=== PATIENT | female | born 1960 | race Caucasian/White ===

== ENCOUNTER → 2019-01-01 | Outpatient (CLI) | payer BC ==
--- NOTE | 2019-01-01 16:55 | US ---
EXAMINATION TYPE: US venous doppler duplex LE LT DATE OF EXAM: 01/01/2019 4:40 PM COMPARISON: NONE CLINICAL HISTORY: M25.562 PAIN IN LT KNEE. SIDE PERFORMED: TECHNIQUE: The lower extremity deep venous system is examined utilizing real time linear array sonog deepa with graded compression, doppler sonography and color-flow sonography. VESSELS IMAGED: External Iliac Vein (EIV)-not seen Common Femoral Vein Deep Femoral Vein Greater Saphenous Vein * Femoral Vein- unable to see vein for compression views due to Popliteal Vein Small Saphenous Vein * Proximal Calf Veins-not seen (* superficial vessels) Morbidly obese patient with swelling. Technically difficult and somewhat limited study. Results phone to Cristal at Dr. Griffin's office. Right Leg: Negative for DVT Left Leg: IMPRESSION: Limited exam. No evidence of deep venous thrombosis in the left leg.
== END | disposition home or self-care (01) ==
LOC: RADUSWWP 16:12
PROVIDERS: ATTEND Orthopaedic Surgery Hand Surgery
DX: I80.9 Phlebitis and thrombophlebitis of unspecified site (principal); L03.116 Cellulitis of left lower limb; S80.02XA Contusion of left knee, initial encounter

== ENCOUNTER 2020-12-14 07:40 | Observation (INO) | payer BC ==
[2020-12-14] MEDS ORDERED: SODIUM CHLORIDE 0.9% 500 ML 500 ML IV ONE (08:06)
--- NOTE | 2020-12-14 08:11 | ED ---
General Adult HPI - General Source: patient, RN notes reviewed Mode of arrival: ambulatory Limitations: no limitations <Ender Jackson - Last Filed: 12/14/20 10:11> <Osmany Mujica - Last Filed: 12/14/20 10:49> - General Chief complaint: Chest Pain Stated complaint: CHRISTY,Chest pain Time Seen by Provider: 12/14/20 08:00 - History of Present Illness Initial comments: This is a 60-year-old female presents emergency Department chief complaint of shortness breath, chest tightness. Patient states started over the night. Patient states she had no symptoms yesterday. Patient states it feels like it's hard to get deep breath and chest pain on her bilateral lower chest rib area. Patient states she has no significant past medical history though she does not go to a primary care physician on a regular basis. She denies history of cardiac disease however he may, hypertension, diabetes, PE, DVT. She states that she tries to take deep breath but just feels that she does not get no oxygen. She has noticed some leg swelling greater than the left leg. Patient denies any back pain no headache no dizziness. (Ender Jackson) - Related Data Home Medications Medication Instructions Recorded Confirmed Multivitamin/Iron/Folic Acid 1 tab PO DAILY 08/22/14 12/14/20 [Centrum Complete Multivit Tab] Allergies Allergy/AdvReac Type Severity Reaction Status Date / Time No Known Allergies Allergy Verified 12/14/20 08:20 Review of Systems ROS Other: All systems not noted in ROS Statement are negative. <Ender Jackson - Last Filed: 12/14/20 10:11> ROS Other: All systems not noted in ROS Statement are negative. <Osmany Mujica - Last Filed: 12/14/20 10:49> ROS Statement: Those systems with pertinent positive or pertinent negative responses have been documented in the HPI. Past Medical History Past Medical History: No Reported History History of Any Multi-Drug Resistant Organisms: None Reported Past Surgical History: Cholecystectomy, Hysterectomy, Uterine Ablation Past Anesthesia/Blood Transfusion Reactions: Family Hisory of Malignant Hyperthermia Additional Past Anesthesia/Blood Transfusion Reaction / Comment(s): GRANDFATHER HAD MALIGNANT HYPERTHERMIA Past Psychological History: No Psychological Hx Reported Smoking Status: Never smoker Past Alcohol Use History: None Reported Past Drug Use History: None Reported - Past Family History Mother Family Medical History: Cancer Additional Family Medical History / Comment(s): COLON CANCER Father Family Medical History: Cancer <Ender Jackson Sulaiman - Last Filed: 12/14/20 10:11> General Exam Limitations: no limitations General appearance: alert, in no apparent distress Head exam: Present: atraumatic, normocephalic, normal inspection Eye exam: Present: normal appearance, PERRL, EOMI. Absent: scleral icterus, conjunctival injection, periorbital swelling ENT exam: Present: normal exam, normal oropharynx, mucous membranes moist, TM's normal bilaterally Neck exam: Present: normal inspection, full ROM. Absent: tenderness, meningismus, lymphadenopathy Respiratory exam: Present: normal lung sounds bilaterally. Absent: respiratory distress, wheezes, rales, rhonchi, stridor Cardiovascular Exam: Present: normal rhythm, tachycardia, normal heart sounds. Absent: systolic murmur, diastolic murmur, rubs, gallop, clicks GI/Abdominal exam: Present: soft, normal bowel sounds. Absent: distended, tenderness, guarding, rebound, rigid Extremities exam: Present: pedal edema (Mild swelling to the left leg with no significant calf Tenderness) Neurological exam: Present: alert, oriented X3 Skin exam: Present: warm, dry, intact, normal color. Absent: rash <Ender Jackson - Last Filed: 12/14/20 10:11> Course <Osmany Mujica - Last Filed: 12/14/20 10:49> Vital Signs 12/14/20 12/14/20 07:44 09:57 Temperature 98.0 F Pulse Rate 120 H 114 H Respiratory 22 20 Rate Blood Pressure 187/86 149/80 O2 Sat by Pulse 97 99 Oximetry - Reevaluation(s) Reevaluation #1: 12/14/20 10:48 PA supervision: I did personally evaluate this case patient presented with complaints of shortness of breath. He does demonstrate evidence of tachycardia shortness of breath she will be admitted. Dr. Kumar the admitting physician (Osmany Mujica) EKG Findings - EKG Comments: EKG Findings:: EKG performed at 17:59 sinus tachycardia rate of 115 MO 152 QRS 90 QT/QTC 332/459 <Ender Jackson - Last Filed: 12/14/20 10:11> Medical Decision Making - Lab Data Result diagrams: 12/14/20 08:17 12/14/20 08:17 <Ender Jackson - Last Filed: 12/14/20 10:11> - Lab Data Result diagrams: 12/14/20 08:17 12/14/20 08:17 <GuanakoOsmany - Last Filed: 12/14/20 10:49> - Medical Decision Making Patient's been persistent symptoms, persistent tachycardia. Ultrasound chest x- ray and labs unremarkable. Patient be made for echocardiogram, cardiology evaluation. (Ender Jackson) - Lab Data Lab Results 12/14/20 12/14/20 12/14/20 Range/Units 08:17 08:17 08:17 WBC 6.2 (3.8-10.6) k/uL RBC 4.95 (3.80-5.40) m/uL Hgb 14.0 (11.4-16.0) gm/dL Hct 42.2 (34.0-46.0) % MCV 85.3 (80.0-100.0) fL MCH 28.3 (25.0-35.0) pg MCHC 33.1 (31.0-37.0) g/dL RDW 15.2 (11.5-15.5) % Plt Count 194 (150-450) k/uL MPV 7.5 Neutrophils % 79 % Lymphocytes % 15 % Monocytes % 3 % Eosinophils % 1 % Basophils % 1 % Neutrophils # 4.9 (1.3-7.7) k/uL Lymphocytes # 0.9 L (1.0-4.8) k/uL Monocytes # 0.2 (0-1.0) k/uL Eosinophils # 0.1 (0-0.7) k/uL Basophils # 0.0 (0-0.2) k/uL Poikilocytosis Slight PT 10.2 (9.0-12.0) sec INR 0.9 (<1.2) APTT 24.5 (22.0-30.0) sec D-Dimer 0.47 (<0.60) mg/L FEU Sodium 139 (137-145) mmol/L Potassium 4.0 (3.5-5.1) mmol/L Chloride 107 (98-107) mmol/L Carbon Dioxide 25 (22-30) mmol/L Anion Gap 7 mmol/L BUN 11 (7-17) mg/dL Creatinine 0.71 (0.52-1.04) mg/dL Est GFR (CKD-EPI)AfAm >90 (>60 ml/min/1.73 sqM) Est GFR (CKD-EPI)NonAf >90 (>60 ml/min/1.73 sqM) Glucose 137 H (74-99) mg/dL Plasma Lactic Acid Frederick (0.7-2.0) mmol/L Calcium 9.6 (8.4-10.2) mg/dL Magnesium 2.0 (1.6-2.3) mg/dL Total Bilirubin 0.8 (0.2-1.3) mg/dL AST 25 (14-36) U/L ALT 28 (4-34) U/L Alkaline Phosphatase 99 (38-126) U/L Troponin I (0.000-0.034) ng/mL NT-Pro-B Natriuret Pep pg/mL Total Protein 6.9 (6.3-8.2) g/dL Albumin 4.3 (3.5-5.0) g/dL 12/14/20 12/14/20 12/14/20 Range/Units 08:17 08:17 08:17 WBC (3.8-10.6) k/uL RBC (3.80-5.40) m/uL Hgb (11.4-16.0) gm/dL Hct (34.0-46.0) % MCV (80.0-100.0) fL MCH (25.0-35.0) pg MCHC (31.0-37.0) g/dL RDW (11.5-15.5) % Plt Count (150-450) k/uL MPV Neutrophils % % Lymphocytes % % Monocytes % % Eosinophils % % Basophils % % Neutrophils # (1.3-7.7) k/uL Lymphocytes # (1.0-4.8) k/uL Monocytes # (0-1.0) k/uL Eosinophils # (0-0.7) k/uL Basophils # (0-0.2) k/uL Poikilocytosis PT (9.0-12.0) sec INR (<1.2) APTT (22.0-30.0) sec D-Dimer (<0.60) mg/L FEU Sodium (137-145) mmol/L Potassium (3.5-5.1) mmol/L Chloride (98-107) mmol/L Carbon Dioxide (22-30) mmol/L Anion Gap mmol/L BUN (7-17) mg/dL Creatinine (0.52-1.04) mg/dL Est GFR (CKD-EPI)AfAm (>60 ml/min/1.73 sqM) Est GFR (CKD-EPI)NonAf (>60 ml/min/1.73 sqM) Glucose (74-99) mg/dL Plasma Lactic Acid Frederick 2.1 H* (0.7-2.0) mmol/L Calcium (8.4-10.2) mg/dL Magnesium (1.6-2.3) mg/dL Total Bilirubin (0.2-1.3) mg/dL AST (14-36) U/L ALT (4-34) U/L Alkaline Phosphatase (38-126) U/L Troponin I <0.012 (0.000-0.034) ng/mL NT-Pro-B Natriuret Pep 106 pg/mL Total Protein (6.3-8.2) g/dL Albumin (3.5-5.0) g/dL Disposition <Ender Jackson - Last Filed: 12/14/20 10:11> <Osmany Mujica - Last Filed: 12/14/20 10:49> Clinical Impression: Chest pain, Shortness of breath, Tachycardia Disposition: ADMITTED IP TO THIS HOSP Condition: Fair
[2020-12-14 08:26] LABS: Basophils % (A) 1 %; Eosinophils # (A) 0.1 k/uL (0-0.7); Eosinophils % (A) 1 %; HCT 42.2 % (34.0-46.0); Lymphocytes # (A) 0.9 k/uL (1.0-4.8); Lymphocytes % (A) 15 %; MCH 28.3 pg (25.0-35.0); MCHC 33.1 g/dL (31.0-37.0); MCV 85.3 fL (80.0-100.0); Mean Platelet Volume 7.5; Monocytes # (A) 0.2 k/uL (0-1.0); Monocytes % (A) 3 %; Neutrophils # (A) 4.9 k/uL (1.3-7.7); Neutrophils % (A) 79 %; Platelet Count 194 k/uL (150-450); Poikilocytosis Slight; RBC 4.95 m/uL (3.80-5.40); RDW 15.2 % (11.5-15.5); WBC 6.2 k/uL (3.8-10.6)
[2020-12-14 08:39] LABS: D-Dimer 0.47 mg/L FEU (<0.60); INR 0.9 (<1.2); Partial Thromboplastin Time 24.5 sec (22.0-30.0); Prothrombin Time 10.2 sec (9.0-12.0)
[2020-12-14 08:46] LABS: ALT 28 U/L (4-34); AST 25 U/L (14-36); African American GFR (CKD) >90 (>60 ml/min/1.73 sqM); Albumin 4.3 g/dL (3.5-5.0); Alkaline Phosphatase 99 U/L (38-126); Anion Gap 7 mmol/L; Blood Urea Nitrogen 11 mg/dL (7-17); Calcium 9.6 mg/dL (8.4-10.2); Carbon Dioxide 25 mmol/L (22-30); Chloride 107 mmol/L (98-107); Glucose 137 mg/dL (74-99); Non-African American GFR(CKD) >90 (>60 ml/min/1.73 sqM); Sodium 139 mmol/L (137-145); Total Bilirubin 0.8 mg/dL (0.2-1.3); Total Protein 6.9 g/dL (6.3-8.2)
--- NOTE | 2020-12-14 08:54 | XR ---
EXAMINATION TYPE: XR chest 2V DATE OF EXAM: 12/14/2020 COMPARISON: NONE HISTORY: Difficulty in breathing. TECHNIQUE: Frontal and lateral views of the chest are obtained. FINDINGS: There is no focal air space opacity, pleural effusion, or pneumothorax seen. The cardiac silhouette size is within normal limits. Slight underlying scoliotic curvature with mild multilevel s purring. Cholecystectomy clips are noted. IMPRESSION: No acute cardiopulmonary process.
--- NOTE | 2020-12-14 09:26 | US ---
EXAMINATION TYPE: US venous doppler duplex LE LT DATE OF EXAM: 12/14/2020 9:16 AM COMPARISON: NONE CLINICAL HISTORY: 60-year-old female pain. No redness. Patient states her left leg swells. SOB. SIDE PERFORMED: Left TECHNIQUE: The lower extremity deep venous system is examined utilizing real time linear array sonog deepa with graded compression, doppler sonography and color-flow sonography. FINDINGS: VESSELS IMAGED: Common Femoral Vein Deep Femoral Vein Greater Saphenous Vein * Femoral Vein Popliteal Vein Small Saphenous Vein * Proximal Calf Veins (* superficial vessels) *Dip Stand Loader notes:Very limited exam due to patient body habitus Left Leg: Negative for acute DVT IMPRESSION: No evidence for DVT within the left lower extremity imaged from the groin to the upper calf.
[2020-12-14] MEDS ORDERED: HEPARIN SODIUM,PORCINE 5,000 UNIT/ML 1 ML VIAL IV ONE (10:12)
[2020-12-14] MEDS ORDERED: ASPIRIN 81 MG PO STA (10:12)
[2020-12-14] MEDS ORDERED: NITROGLYCERIN SL TABS 0.4 MG TAB SUBLINGUAL PRN (10:12)
[2020-12-14] MEDS: HEPARIN SOD,PORK IN 0.45% NACL 25,000 UNIT in 0.45% NACL 1 250ML.BAG IV SCH (10:42)
[2020-12-14 11:22] LABS: Appearance,Urine Clear (Clear); Bilirubin,Urine Negative (Negative); Blood,Urine Negative (Negative); Color,Urine Light Yellow; Glucose,Urine (UA) Negative (Negative); Ketones,Urine Negative (Negative); Leukocyte Esterase,Urine Negative (Negative); Nitrite,Urine Negative (Negative); PH, Urine 7.5 (5.0-8.0); Protein,Urine Negative (Negative); Specific Gravity,Urine 1.009 (1.001-1.035); Urobilinogen,Urine <2.0 mg/dL (<2.0)
[2020-12-14] MEDS ORDERED: OXYMETAZOLINE 0.05% NASL SPRAY 1 SPRAY BOTTLE NASAL STA (12:49)
[2020-12-14 21:58] LABS: C Reactive Protein 12.1 mg/L (<10.0)
[2020-12-14] MEDS: HEPARIN SODIUM,PORCINE 5,000 UNIT/ML 1 ML VIAL IV PRN (22:01)
[2020-12-14] MEDS ORDERED: ALBUTEROL NEBULIZED 2.5 MG/3 ML INHALATION PRN (22:41)
--- NOTE | 2020-12-14 22:46 | P.HPIM ---
History of Present Illness H&P Date: 12/14/20 Chief Complaint: CHRISTY Patient is a 60-year-old female with a known history of obesity, hysterectomy presents to ER with complaints of shortness of breath and chest tightness wo rsening for the past 2 weeks. Overnight her symptoms got worse. Patient states that she felt like choking in the neck and hard to take deep breath. She has been having on and off chest pain mainly in the lower rib area lasting for few seconds. Sharp pains. No radiation. No associated nausea vomiting or abdominal pain. No diarrhea or dysuria. No recent illnesses or sick contacts. Patient has been working at home due to COVID-19 pandemic. Denies any cough or sputum production. No fever no chills. No prior history of blood clots. Chest x-ray showed no acute cardiopulmonary process. Left lower extremity duplex scan is negative for DVT. D-dimer is not elevated. EKG showed sinus tachycardia with heart rate 115 Lab data showed WBC 6.2, hemoglobin 14.0 and platelets 194, D-dimer 0.47 Lactic acid 2.1 Troponin x3 - CRP 12.1 and TSH level is 2.98 and pro BNP 1 was 6 UA negative for infection. Blood pressure was 187/86 and pulse 120 and pulse ox 97% on room air on admission. Review of Systems Constitutional: Patient denies any fever or chills . No generalized weakness or weight loss. Abdomen: Patient denied nausea vomiting and diarrhea and abdominal pain. Cardiovascular:Patient does have shortness of breath, chest tightness and on and off chest pain. exertional dyspnea Respiratory: patient denied any cough or sputum production. No shortness of br eath Neurologic: Patient denied any numbness or tingling headache. Musculoskeletal: Patient denies any complaints of joint swelling or deformity. Skin: Negative Psychiatric: Negative Endocrine: No heat or cold intolerance. No recent weight gain. Genitourinary: No dysuria or hematuria. All other 14 point ROS negative except the above Past Medical History Past Medical History: No Reported History History of Any Multi-Drug Resistant Organisms: None Reported Past Surgical History: Cholecystectomy, Hysterectomy, Uterine Ablation Past Anesthesia/Blood Transfusion Reactions: Family Hisory of Malignant Hyperthermia Additional Past Anesthesia/Blood Transfusion Reaction / Comment(s): GRANDFATHER HAD MALIGNANT HYPERTHERMIA Past Psychological History: No Psychological Hx Reported Smoking Status: Never smoker Past Alcohol Use History: None Reported Past Drug Use History: None Reported - Past Family History Mother Family Medical History: Cancer Additional Family Medical History / Comment(s): COLON CANCER Father Family Medical History: Cancer Medications and Allergies Home Medications Medication Instructions Recorded Confirmed Type Multivitamin/Iron/Folic Acid 1 tab PO DAILY 08/22/14 12/14/20 History [Centrum Complete Multivit Tab] Allergies Allergy/AdvReac Type Severity Reaction Status Date / Time No Known Allergies Allergy Verified 12/14/20 08:20 Physical Exam Vitals: Vital Signs Temp Pulse Resp BP Pulse Ox 12/14/20 13:58 98 18 156/78 97 12/14/20 13:55 97 18 173/78 98 12/14/20 09:57 114 H 20 149/80 99 12/14/20 07:44 98.0 F 120 H 22 187/86 97 Intake and Output 12/13/20 12/14/20 12/14/20 22:59 06:59 14:59 Other: Weight 122.47 kg PHYSICAL EXAMINATION: Patient is lying in the bed comfortably, no acute distress, awake alert and oriented.obese. HEENT: Normocephalic. Neck is supple. Pupils reactive. Nostrils clear. Oral cavity is moist. Ears reveal no drainage. Neck reveals no JVD, carotid bruits, or thyromegaly. CHEST EXAMINATION: Trachea is central. Symmetrical expansion. No wheezing. Lung [place] clear to auscultation and percussion. CARDIAC: Normal S1, S2 with no gallops. No murmurs ABDOMEN: Soft. Bowel sounds normal. No organomegaly. No abdominal bruits. Extremities: reveal no edema. No clubbing or cyanosis Neurologically awake, alert, oriented x3 with well-coordinated movements. No focal deficits noted Skin: No rash or skin lesions. Psychiatric: Coperative. Nonsuicidal Musculoskeletal: No joint swelling or deformity. Normal range of motion. Results CBC & Chem 7: 12/14/20 08:17 12/14/20 08:17 Labs: Abnormal Lab Results - Last 24 Hours (Table) 12/14/20 12/14/20 12/14/20 Range/Units 08:17 08:17 08:17 Lymphocytes # 0.9 L (1.0-4.8) k/uL Glucose 137 H (74-99) mg/dL Plasma Lactic Acid Frederick 2.1 H* (0.7-2.0) mmol/L Thrombosis Risk Factor Assmnt - DVT/VTE Prophylaxis DVT/VTE Prophylaxis: Pharmacologic Prophylaxis ordered Assessment and Plan Assessment: Shortness of breath and chest tightness and on and off chest pain. Rule out ACS. Sinus tachycardia Elevated blood pressure. No prior history of hypertension. Ruled out pulmonary embolism. D-dimer is not elevated. Lower extremity duplex scan is negative for DVT. Obesity with a BMI 39.9 History of hysterectomy DVT prophylaxis patient is already on heparin drip Plan: Patient will be continued on telemetry monitoring. Serial EKG and troponin x3. TSH level is within normal limits. Cardiology was consulted for evaluation. 2D echocardiogram will be ordered and further recommendations based on the clinical course. Time with Patient: Greater than 30
[2020-12-15] MEDS: HEPARIN SODIUM,PORCINE 5,000 UNIT/ML 1 ML VIAL IV PRN (04:19)
[2020-12-15 04:25] LABS: Cholesterol 144 mg/dL (<200); HDL Cholesterol 36 mg/dL (40-60); LDL Cholesterol,Calculated 73 mg/dL (0-99); Triglycerides 173 mg/dL (<150)
[2020-12-15 05:24] LABS: Ferritin 230.4 ng/mL (10.0-291.0)
[2020-12-15] MEDS: HEPARIN SOD,PORK IN 0.45% NACL 25,000 UNIT in 0.45% NACL 1 250ML.BAG IV SCH (06:24)
[2020-12-15 08:37] VITALS: BP 145/81; PULSE 86; RESP 16; TEMP 97.8
[2020-12-15] MEDS ORDERED: ASPIRIN 325 MG TAB PO SCH (09:00)
[2020-12-15] MEDS ORDERED: MULTIVITAMINS, THERA 1 EACH TAB PO SCH (09:00)
--- NOTE | 2020-12-15 09:23 | ECHOF ---
Referral Reason:chest pain MEASUREMENTS -------- HEIGHT: 175.3 cm WEIGHT: 122.5 kg BP: RVIDd: 2.5 cm (< 3.3) IVSd: 1.4 cm (0.6 - 1.1) LVIDd: 4.2 cm (3.9 - 5.3) LVPWd: 1.7 cm (0.6 - 1.1) IVSs: 2.0 cm LVIDs: 2.3 cm LVPWs: 2.2 cm Ao Diam: 3.0 cm (2.0 - 3.7) AV Cusp: 1.9 cm (1.5 - 2.6) LA Diam: 3.0 cm (2.7 - 3.8) MV E Hernán: 0.63 m/s MV DecT: 243 ms MV A Hernán: 0.65 m/s MV E/A Ratio: 0.97 RAP: 5.00 mmHg RVSP: 11.86 mmHg FINDINGS -------- This was a technically difficult study with suboptimal views. The left ventricular size is normal. There is moderate concentric left ventricular hypertrophy. O verall left ventricular systolic function is low-normal with, an EF between 50 - 55 %. The right ventricle is normal in size. The left atrial size is normal. The right atrial size is normal. Lumason used The aortic valve is trileaflet and appears structurally normal. The mitral valve is normal. There is trace mitral regurgitation. The tricuspid valve appears structurally normal. Trace tricuspid regurgitation present. Right tamar tricular systolic pressure is normal at < 35 mmHg. There is no pulmonic regurgitation present. The aortic root size is normal. IVC Not well visulized. There is no pericardial effusion. CONCLUSIONS -------- 1. The left ventricular size is normal. 2. There is moderate concentric left ventricular hypertrophy. 3. Overall left ventricular systolic function is low-normal with, an EF between 50 - 55 %. 4. There is trace mitral regurgitation. 5. Trace tricuspid regurgitation present. 6. There is no pericardial effusion. GROUND INTELLIGENCE OFFICER: Ruthie Helton, [facility]
[2020-12-15] MEDS ORDERED: DOBUTamine DRIP for NUC MED 500 MG in DEXTROSE/WATER 1 250ML.BAG IV PRN (09:28)
--- NOTE | 2020-12-15 10:06 | P.CRDCN ---
History of Present Illness History of present illness: HISTORY OF PRESENTING ILLNESS This is a pleasant 60-year-old female past medical history significant for morbid obesity. She denies prior history of coronary artery disease and do es not follow in the office with a lard maker. We have been asked to see in consultation for chest pain. She states for the previous 2-1/2 weeks she has been experiencing symptoms of shortness of breath, chest pain, epigastric tenderness, abdominal pain and intermittent nausea. The shortness of breath feels more like she cannot take a deep breath because her "lungs feel deflated". She denies exertional shortness of breath. The pain is described a heavy pressure in the mid-sternal region that radiates around her torso, into the upper abdominal region and to the base of her ribs. It is not associated with exertion or activity. She is also feeling tenderness in the epigastric region that she states even hurts when the blanket or gown is resting on her skin. Echocardiogram obtained reveals preserved LV systolic function with ejection fraction 50-55%. DIAGNOSTICS EKG reveals sinus tachycardia with Q3T3 pattern and heart rate of 115. Telemetry tracings indicate sinus rhythm with no acute arrhythmia noted. Chest xray negative for an acute cardiopulmonary process. Laboratory reviewed, CBC unremarkable, d-dimer 0.47, sodium 139, potassium 4.0, creatinine 0.71, lactic acid on admission 2.1 after fluid hydration 2.0, magnesium 2.0, cardiac enzymes negative 3, TSH 2.98. She takes no daily cardiac medications. REVIEW OF SYSTEMS At the time of my exam: CONSTITUTIONAL: Denies fever or chills. CARDIOVASCULAR: Denies chest pain, shortness of breath, orthopnea, PND or palpitations. RESPIRATORY: Denies cough. GASTROINTESTINAL: Denies abdominal pain, diarrhea, constipation, nausea or vo miting. MUSCULOSKELETAL: Denies myalgias. NEUROLOGIC: Denies numbness, tingling, headacbe or weakness. ENDOCRINE: Denies fatigue, weight change, polydipsia or polyurina. GENITOURINARY: Denies burning, hematuria or urgency with micturation. HEMATOLOGIC: Denies history of anemia or bleeding. PHYSICAL EXAMINATION Blood pressure 145/81 heart rate 86 afebrile and maintaining oxygen saturation on room air. CONSTITUTIONAL: No apparent distress. Obese. HEENT: Head is normocephalic. Pupils are equal, round. Sclerae anicteric. Mucous membranes of the mouth are moist. No JVD. No carotid bruit. CHEST EXAMINATION: Lungs are clear to auscultation. No chest wall tenderness is noted on palpation or with deep breathing. HEART EXAMINATION: Regular rate and rhythm. S1, S2 heard. No murmurs, gallops or rub. ABDOMEN: Soft, nontender. Positive bowel sounds. EXTREMITIES: 2+ peripheral pulses, bilateral lower extremity nonpitting circumferential edema and no calf tenderness. NEUROLOGIC EXAMINATION: Patient is awake, alert and oriented x3. ASSESSMENT Chest pain, atypical Obesity, BMI 39 Lactic acidosis PLAN An acute coronary event has been ruled out. Echocardiogram revealed preserved LV systolic function with no evidence of wall motion abnormalities. Discontinue heparin infusion. Perform dobutamine stress echo to assess for stress induced ischemia. Pain is atypical for angina, could be early signs of shingles with the pain sensation she is experiencing to light touch. Also consider GI etiology for pain. Thank you kindly for this consultation. Nurse Practitioner note has been reviewed, I agree with a documented findings and plan of care. Patient was seen and examined. Past Medical History Past Medical History: No Reported History History of Any Multi-Drug Resistant Organisms: None Reported Past Surgical History: Cholecystectomy, Hysterectomy, Uterine Ablation Past Anesthesia/Blood Transfusion Reactions: Family Hisory of Malignant Hyperthermia Additional Past Anesthesia/Blood Transfusion Reaction / Comment(s): GRANDFATHER HAD MALIGNANT HYPERTHERMIA Past Psychological History: No Psychological Hx Reported Smoking Status: Never smoker Past Alcohol Use History: None Reported Past Drug Use History: None Reported - Past Family History Mother Family Medical History: Cancer Additional Family Medical History / Comment(s): COLON CANCER. Heart cath with st ent Father Family Medical History: Cancer Medications and Allergies Home Medications Medication Instructions Recorded Confirmed Type Multivitamin/Iron/Folic Acid 1 tab PO DAILY 08/22/14 12/14/20 History [Centrum Complete Multivit Tab] Allergies Allergy/AdvReac Type Severity Reaction Status Date / Time No Known Allergies Allergy Verified 12/14/20 08:20 Physical Exam Vitals: Vital Signs Temp Pulse Pulse Resp BP BP Pulse Ox 12/15/20 08:43 86 16 12/15/20 08:15 97.8 F 86 16 145/81 97 12/15/20 03:00 97.6 F 79 18 138/78 96 12/14/20 20:00 98.2 F 18 138/78 98 12/14/20 18:19 91 18 148/74 95 12/14/20 15:33 100 18 159/83 96 12/14/20 13:58 98 18 156/78 97 12/14/20 13:55 97 18 173/78 98 12/14/20 09:57 114 H 20 149/80 99 Intake and Output 12/14/20 12/15/20 12/15/20 22:59 06:59 14:59 Intake Total 110.833 123.089 Balance 110.833 123.089 Intake: Intake, IV Titration 110.833 123.089 Amount Heparin Sod,Pork in 0.45% 110.833 123.089 NaCl 25,000 unit In 0.45 % NaCl 1 250ml.bag @ 8. 165 UNITS/KG/HR 10 mls/hr IV .Q24H [facility] Rx#: [id number] Other: Voiding Method Toilet Toilet Toilet # Voids 2 1 1 Weight 122.47 kg Results 12/14/20 08:17 12/14/20 08:17 Cardiac Enzymes 12/14/20 12/14/20 12/14/20 Range/Units 11:13 15:11 20:45 Lactate Dehydrogenase 494 (313-618) U/L Troponin I 0.012 <0.012 (0.000-0.034) ng/mL Coagulation 12/14/20 12/14/20 12/15/20 Range/Units 15:11 20:45 03:14 APTT 28.3 27.7 38.0 H (22.0-30.0) sec Lipids 12/15/20 Range/Units 03:14 Triglycerides 173 H (<150) mg/dL Cholesterol 144 (<200) mg/dL HDL Cholesterol 36 L (40-60) mg/dL Current Medications Generic Name Dose Route Start Last Admin Trade Name Freq PRN Reason Stop Dose Admin Albuterol Sulfate 2.5 mg 12/14/20 22:41 Albuterol Nebulized 2.5 Mg/3 Ml INHALATION RT-QID PRN Shortness Of Breath Or Wheezing Aspirin 325 mg 12/15/20 09:00 12/15/20 08:20 Aspirin 325 Mg Tab PO 325 mg DAILY [facility] Administration Heparin Sodium (Porcine) 0 unit 12/14/20 21:48 12/15/20 04:19 Heparin Sodium,Porcine 5,000 Unit/Ml 1 Ml Vial IV 2,939 unit PER PROTOCOL PRN Administration Low PTT Protocol Dobutamine HCl/Dextrose 500 mg 250 mls @ 36.741 mls/hr 12/15/20 09:28 / IV Solution IV 12/15/20 13:28 .Q6H49M PRN Per Protocol Protocol 10 MCG/KG/MIN Multivitamins 1 each 12/15/20 09:00 12/15/20 08:20 Multivitamins, Thera 1 Each Tab PO 1 each DAILY [facility] Administration Nitroglycerin 0.4 mg 12/14/20 10:12 Nitroglycerin Sl Tabs 0.4 Mg Tab SUBLINGUAL Q5M PRN Chest Pain Intake and Output 12/14/20 12/15/20 12/15/20 22:59 06:59 14:59 Intake Total 110.833 123.089 Balance 110.833 123.089 Intake: Intake, IV Titration 110.833 123.089 Amount Heparin Sod,Pork in 0.45% 110.833 123.089 NaCl 25,000 unit In 0.45 % NaCl 1 250ml.bag @ 8. 165 UNITS/KG/HR 10 mls/hr IV .Q24H [facility] Rx#: [id number] Other: Voiding Method Toilet Toilet Toilet # Voids 2 1 1 Weight 122.47 kg 12/14/20 08:17 12/14/20 08:17
--- NOTE | 2020-12-15 13:39 | ECHOS ---
STRESS ECHOCARDIOGRAM DOBUTAMINE STRESS ECHOCARDIOGRAM DATE OF SERVICE: 12/15/2020 LUMASON: Vial INDICATIONS: Chest pain. MEDICATIONS: BASELINE HEART RATE: 87 BASELINE BLOOD PRESSURE: 147/60 MAXIMUM HEART RATE: 156 MAXIMUM BLOOD PRESSURE: 151/60 85% MPHR: 138 100% MPHR: 162 METS: MAXIMUM STAGE REACHED: TOTAL EXERCISE TIME: CLINICAL INFORMATION: STRESS DATA: Heart rate is 87, pressure is 147/60 mmHg. Baseline EKG showed sinus mechanism. Dobutamine infusion at a dose of 10 mcg/kg per minute was initiated and increased to 20 mcg/kg per minute per protocol. Max heart rate was 156 which is about 91% of maximum predicted heart rate. Maximum blood pressure was 151/60 mmHg. Clinically, the patient did not have any symptoms of chest pain or chest discomfort and the EKG did not show any significant ST or T-wave abnormalities concerning for ischemia. ECHOCARDIOGRAM IMAGES: On echocardiogram images from parasternal long axis view, parasternal short axis view, apical 4 chamber and apical 2 chamber were obtained as the baseline images, at low dose dobutamine infusion, at peak heart rate as well as on recovery and the echocardiogram images showed good augmentation in the left ventricular systolic function without any evidence of wall motion abnormalities concerning for ischemia. CONCLUSION: 1. Normal EKG in response to dobutamine. 2. Normal echocardiogram in response to dobutamine. 3. Essentially normal dobutamine stress echocardiogram for the patient. HUL / IJN: [id number] /
== END 2020-12-15 15:07 | disposition home or self-care (01) ==
LOC: EC 07:40 → 1SOBS 10:14
PROVIDERS: ADMIT Hospitalist; ATTEND Hospitalist
DX: R07.89 Other chest pain (principal); E87.2 Acidosis; R00.0 Tachycardia, unspecified; R03.0 Elevated blood-pressure reading, without diagnosis of hypertension; R06.02 Shortness of breath; R11.0 Nausea; R10.816 Epigastric abdominal tenderness; R22.42 Localized swelling, mass and lump, left lower limb; E66.01 Morbid (severe) obesity due to excess calories; Z68.39 Body mass index [BMI] 39.0-39.9, adult; Z90.49 Acquired absence of other specified parts of digestive tract; Z90.710 Acquired absence of both cervix and uterus; Z84.89 Family history of other specified conditions; Z80.0 Family history of malignant neoplasm of digestive organs
CPT/HCPCS: 93005 ×2; 96366 ×3; 96376 ×3; 96361; 96365; 99285; 36415; 93306; 93351; 85379; 83880; 80061; 80053; 84443; 82728; 83605; 83615; 83735; 84484; 85025; 85610; 85730 ×2; 86140; 81003; 71046; 93971; G0378 ×2; J1644 ×4; Q9950 ×2